=== PATIENT | female | born 1980 | race Caucasian/White ===

== ENCOUNTER 2016-08-24 10:42 | Outpatient (CLI) | payer OTHER ==
--- NOTE | 2016-08-24 13:14 | DIAGNOSTIC IMAGING REPORT ---
PROCEDURE: MR LOWER EXT JOINT WO CONT-RT INDICATION: RT KNEE PAIN TECHNIQUE: T1 and STIR sagittal, axial, coronal and coronal-oblique images. COMPARISON: None. FINDINGS: Normal cruciate and collateral ligaments. Degeneration versus small tear of the lateral meniscus anterior horn at the root. Normal medial meniscus. Normal articular cartilage. Normal quadriceps and patellar tendons. Moderate chondromalacia patella with minor subchondral changes. 10 mm subchondral lesion of the lateral femoral condyle anteriorly with overlying cartilage defect, osteochondral lesion versus osteochondritis desiccans. There is no popliteal cyst or joint effusion. IMPRESSION: 1. 10 mm osteochondral lesion of the lateral femoral condyle anteriorly versus osteochondritis desiccans 2. Degeneration versus small tear of the lateral meniscus anterior horn at the root 3. Chondromalacia patella
== END 2016-08-24 23:00 ==
LOC: MRI SRH 10:42
DX: M22.41 Chondromalacia patellae, right knee (principal); R93.7 Abnormal findings on diagnostic imaging of other parts of musculoskeletal system

== ENCOUNTER 2016-12-26 10:12 | Outpatient (CLI) | payer OTHER ==
--- NOTE | 2016-12-26 10:50 | DIAGNOSTIC IMAGING REPORT ---
PROCEDURE: XR CHEST 2 VIEW INDICATION: PRE OP TECHNIQUE: PA and lateral views. COMPARISON: None. FINDINGS: Lungs are clear. Heart and mediastinum are normal. Thorax is normal. IMPRESSION: 1. Negative chest.
== END 2016-12-26 23:00 ==
LOC: RT SRH 10:12
DX: Z01.818 Encounter for other preprocedural examination (principal); Z01.812 Encounter for preprocedural laboratory examination; Z01.810 Encounter for preprocedural cardiovascular examination; R00.1 Bradycardia, unspecified
CPT/HCPCS: 90004; 90074; 90100; 90469; 95059